=== PATIENT | female | born 1995 | race American Indian/Alaskan Native ===

== ENCOUNTER 2018-11-27 20:54 | Inpatient (IN) | payer MEDICAID ==
[2018-11-27] MEDS ORDERED: AMPICILLIN/NS 2 GM/100 ML 2 GM/100 ML BAG IV ONE (21:43)
[2018-11-27] MEDS ORDERED: MINERAL OIL PO PRN (21:43)
[2018-11-27] MEDS ORDERED: BRETHINE IVP PRN (21:43)
[2018-11-27] MEDS ORDERED: BRETHINE SUB-Q PRN (21:43)
[2018-11-27] MEDS ORDERED: STADOL IV PRN (21:43)
[2018-11-27] MEDS ORDERED: CERVIDIL VG ONE (21:43)
[2018-11-27] MEDS ORDERED: XYLOCAINE 2% INFILTRATI ONE (21:43)
[2018-11-27] MEDS ORDERED: PITOCin/NS 20 UNIT/1000ML DRIP 20 UNITS/1,000 ML BAG IV SCH (22:00)
[2018-11-27 22:17] LABS: Hematocrit 31.2 % (30.3-42.9); Hemoglobin 9.8 gm/dl (10.1-14.3); Mean Corpuscular HGB Conc 31 % (30-34); Platelet Count 212 K/mm3 (140-440); Red Blood Count 4.51 M/mm3 (3.65-5.03); Red Cell Distribution Width 19.8 % (13.2-15.2)
[2018-11-27] MEDS: LACTATED RINGERS 1,000 ML IV SCH (22:18)
[2018-11-27 22:38] LABS: Mean Corpuscular Volume 69 fl (79-97)
[2018-11-28] MEDS: LACTATED RINGERS 1,000 ML IV SCH ×2 (00:22→09:26)
--- NOTE | 2018-11-28 07:49 | History and Physical Report ---
History of Present Illness Date of examination: 11/28/18 Date of admission: 11/27/18 20:54 Chief complaint: IOL History of present illness: 22y/o @ 41+1 weeks admitted for induction of labor secondary to postterm and morbid obesity. The patient initiated care at 11 weeks' estimated gestational age. Her course has been complicated by STD exposure to Trichomonas and sickle cell trait. The patient is GBS negative. Past History Past Medical History: other (morbid obesity) Past Surgical History: no surgical history Social history: single - Obstetrical History Expected Date of Delivery: 11/19/18 Actual Gestation: 41 Week(s) 3 Day(s) : 1 Para: 0 Hx # Term Pregnancies: 0 Number of Pregnancies: 0 Spontaneous Abortions: 0 Induced : 0 Number of Living Children: 0 Medications and Allergies Allergies Allergy/AdvReac Type Severity Reaction Status Date / Time No Known Allergies Allergy Unverified 08/20/18 16:14 Home Medications Medication Instructions Recorded Confirmed Last Taken Type Formula Tablet 1 tab PO DAILY 11/27/18 11/27/18 11/27/18 History Active Meds: Active Medications Butorphanol Tartrate (Stadol) 2 mg IV Q2H PRN PRN Reason: Pain , Severe (7-10) Ephedrine Sulfate (Ephedrine Sulfate) 10 mg IV Q2M PRN PRN Reason: Hypotension Ampicillin Sodium (Ampicillin/Ns 1 Gm/50 Ml) 1 gm in 50 mls @ 100 mls/hr IV Q4HR JESUS; Protocol Lactated Ringer's (Lactated Ringers) 1,000 mls @ 125 mls/hr IV DIRECT JESUS Last Admin: 11/28/18 00:22 Dose: 125 mls/hr Documented by: Oxytocin/Sodium Chloride (Pitocin/Ns 20 Unit/1000ml Drip) 20 units in 1,000 mls @ 125 mls/hr IV DIRECT JESUS Mineral Oil (Mineral Oil) 30 ml PO QHS PRN PRN Reason: Constipation Terbutaline Sulfate (Brethine) 0.25 mg SUB-Q ONCE PRN PRN Reason: Hyperstimulation/Hypertonicity Terbutaline Sulfate (Brethine) 0.25 mg IVP ONCE PRN PRN Reason: Hyperstimulation/Hypertonicity Review of Systems All systems: negative - Vital Signs Vital signs: Vital Signs Temp Pulse Resp BP 98.8 F 118 H 18 134/78 11/27/18 21:17 11/27/18 21:17 11/27/18 21:17 11/27/18 21:17 Temp Pulse Resp BP Pulse Ox 98.8 F 98 H 18 120/61 96 11/27/18 21:17 11/28/18 07:34 11/27/18 21:17 11/28/18 07:34 11/27/18 21:43 - Physical Exam Breasts: Positive: deferred Cardiovascular: Regular rate Lungs: Positive: Clear to auscultation Results Result Diagrams: 11/27/18 22:00 Abnormal lab results 11/27/18 Range/Units 22:00 Hgb 9.8 L (10.1-14.3) gm/dl MCV 69 L (79-97) fl MCH 22 L (28-32) pg RDW 19.8 H (13.2-15.2) % All other labs normal. Assessment and Plan - Patient Problems (1) Post-term Current Visit: Yes Status: Acute Plan to address problem: Admit for induction of labor (2) Morbid obesity Current Visit: Yes Status: Acute
[2018-11-28] MEDS: AMPICILLIN/NS 1 GM/50 ML 1 GM/50 ML BAG IV SCH ×2 (14:18→18:30)
[2018-11-28] MEDS ORDERED: PITOCin/NS 30 UNIT/500ML 30,000 MILLIUNITS/500 ML BAG IV ONE (15:14)
[2018-11-28] MEDS ORDERED: fentaNYL-BUPIV 2 MCG/ML-0.125% 200 MCG/100 ML BAG EPIDURAL ONE (16:23)
[2018-11-28] MEDS ORDERED: XYLOCAINE 2%/ EPI 1:200,000 INFILTRATI ONE (16:45)
[2018-11-28] MEDS ORDERED: SUBLIMAZE ONE ×2 (16:45→22:12)
[2018-11-28] MEDS ORDERED: PITOCin/NS 30 UNIT/500ML 30 UNITS/500 ML BAG IV SCH (17:00)
[2018-11-28] MEDS ORDERED: NARCAN 2 MG/2 ML IV PRN (17:11)
--- NOTE | 2018-11-28 17:13 | Anesthesia Consultation ---
Anesthesia Consult and Med Hx Date of service: 11/28/18 - Pulmonary Exam CTA: Yes - Cardiac Exam Cardiac Exam: RRR - Pulmonary Hx Asthma: No - Cardiovascular System Hx Hypertension: No Hx Coronary Artery Disease: No - Central Nervous System Hx Seizures: No Hx Psychiatric Problems: No - Endocrine Hx Renal Disease: No Hx Hypothyroidism: No Hx Hyperthyroidism: No - Hematic Hx Anemia: No Hx Sickle Cell Disease: No - Other Systems Hx Alcohol Use: No Hx Obesity: Yes
[2018-11-28] MEDS ORDERED: fentaNYL-BUPIV 2 MCG/ML-0.125% 200 MCG/100 ML BAG EPIDURAL SCH (18:00)
[2018-11-28] MEDS ORDERED: XYLOCAINE 2% INFILTRATI ONE (22:11)
[2018-11-29] MEDS ORDERED: PHENERGAN PR PRN (02:05)
[2018-11-29] MEDS ORDERED: DULCOLAX PR PRN (02:05)
[2018-11-29] MEDS ORDERED: PHENERGAN PO PRN (02:05)
[2018-11-29] MEDS ORDERED: NORCO 5/325 PO PRN (02:05)
[2018-11-29] MEDS ORDERED: TUCKS PAD TP PRN (02:05)
[2018-11-29] MEDS ORDERED: TYLENOL PO PRN (02:05)
[2018-11-29] MEDS ORDERED: BENADRYL PO PRN (02:05)
[2018-11-29] MEDS ORDERED: LANSINOH TP PRN (02:05)
[2018-11-29] MEDS ORDERED: MILK OF MAGNESIA PO PRN (02:05)
[2018-11-29] MEDS ORDERED: ZOFRAN IV PRN (02:05)
--- NOTE | 2018-11-29 02:05 | Procedure Note ---
OB Delivery Note - Delivery Date of Delivery: 11/29/18 Surgeon: BRENDA MEEK Estimated blood loss: 200cc - Vaginal Delivery presentation: vertex Delivery position: OA Intrapartum events: none Delivery augmentation: pitocin Delivery monitor: external FHT Route of delivery: Delivery placenta: spontaneous Delivery cord: 3 umbilical vessels Episiotomy: none Delivery laceration: 1st degree Anesthesia: epidural Delivery comments: Patient progressed to complete dilatation. She had a spontaneous vaginal delivery of a liveborn female with Apgars of 8 and 9 weight 9 lbs. 10 oz. that was attended by the nursing staff. [place] was performed in order to facilitate delivery of the . Cord was clamped and cut 2 and the infant was bulb suction. The NICU staff was called to the delivery. The placenta delivered spontaneously intact with a three-vessel cord. The patient sustained a small first-degree laceration that was left unrepaired. Estimated blood loss of 200 mL. - A at 1 minute: 8 at 5 minutes: 9 Infant Gender: Female (weight 9 lbs. 10 oz.)
[2018-11-29] MEDS ORDERED: SODIUM CHLORIDE FLUSH SYRINGE 10 ML IV PRN (03:00)
[2018-11-29] MEDS: IBUPROFEN PO SCH ×3 (04:25→23:53)
[2018-11-29 15:06] LABS: Hematocrit 25.2 % (30.3-42.9)
--- NOTE | 2018-11-29 21:39 | Post Anesthesia Evaluation ---
- Post Anesthesia Evaluation Patient Participated: Yes Airway Patent: Yes Stable Respiratory Function: Yes Nausea/Vomiting: No Temp > 96.8F: Yes Pain Manageable: Yes Adequeate Hydration: Yes Anesthesia Complications: No Block Receding Appropriately: Yes Patient on Ventilator: No
[2018-11-30] MEDS: IBUPROFEN PO SCH (05:19)
[2018-11-30] MEDS ORDERED: BOOSTRIX IM ONE (06:00)
--- NOTE | 2018-11-30 08:35 | Progress Note ---
Assessment and Plan A/P PPD 1 s/p doing well VSS rh + hgb 9-8 on iron d/c home tomorrow Subjective - Subjective Date of service: 11/30/18 Principal diagnosis: s/p Patient reports: appetite normal, voiding normally, pain well controlled, flatus, ambulating normally [place]: doing well Objective - Vital Signs Latest vital signs: Vital Signs Temp Pulse Resp BP 11/30/18 01:24 98.5 F 98 H 18 124/60 11/29/18 15:10 98.1 F 95 H 20 105/46 Intake and Output 11/29/18 11/30/18 11/30/18 23:59 07:59 15:59 Intake Total 200 600 Balance 200 600 Intake: Oral 200 Intake, Free Water 600 Other: Total, Intake Amount 200 # Voids Void 1 2 - Exam Breasts: Present: normal Cardiovascular: Present: Regular rate, Normal S1 Lungs: Present: Clear to auscultation, Normal air movement Abdomen: Present: normal appearance, soft, normal bowel sounds. Absent: distention, tenderness, guarding Vulva: both: normal Uterus: Present: normal, firm. Absent: bogginess, tenderness Extremities: Present: normal Deep Tendon Reflex Grade: Normal +2 - Labs Labs: Abnormal lab results 11/29/18 Range/Units 14:56 Hgb 8.0 L (10.1-14.3) gm/dl Hct 25.2 L D (30.3-42.9) %
--- NOTE | 2018-11-30 12:54 | Discharge Summary ---
Providers - Providers Date of Admission: 11/27/18 20:54 Date of discharge: 12/01/18 Attending physician: BRENDA MEEK Primary care physician: BRENDA MEEK Hospitalization Reason for admission: induction of labor Delivery: Episiotomy: none Laceration: none Incision: normal complications: none Discharge diagnosis: IUP at term delivered [place] baby: female Hospital course: unremarkable hospital course Condition at discharge: Good Disposition: DC-01 TO HOME OR SELFCARE Plan - Discharge Medications Prescriptions: Ferrous Sulfate 325 mg PO BID #60 tablet. Ibuprofen [Motrin] 600 mg PO Q8H PRN #30 tablet PRN Reason: Pain oxyCODONE /ACETAMINOPHEN [Percocet 5/325] 1 tab PO Q6HR PRN #30 tablet PRN Reason: Pain - Provider Discharge Summary Activity: routine, no sex for 6 weeks, no strenuous exercise Diet: routine Instructions: routine Additional instructions: [] Smoking cessation referral if applicable(refer to patient education folder for contact #) [] Refer to [facility]'s [facility] Booklet Call your doctor immediately for: * Fever > 100.5 * Heavy vaginal bleeding ( >1 pad per hour) * Severe persistent headache * Shortness of breath * Reddened, hot, painful area to leg or breast * Drainage or odor from incision. * Keep incision clean and dry at all times and follow doctor's instructions regarding bathing/showering - Follow up plan Follow up: BRENDA MEEK MD [Primary Care Provider] - 12/27/18
[2018-11-30 19:23] VITALS: BP 136/64
== END 2018-11-30 20:06 | disposition home or self-care (01) | DRG 775 ==
LOC: LD 20:54 → OB 11-29 04:52
PROVIDERS: ADMIT Obstetrics & Gynecology; ATTEND Obstetrics & Gynecology
PROC: 10E0XZZ Delivery of Products of Conception, External Approach (ICD-10-PCS; principal; 2018-11-29)
PROC: 3E0R3BZ Introduction of Anesthetic Agent into Spinal Canal, Percutaneous Approach (ICD-10-PCS; 2018-11-29)
PROC: 00HU33Z Insertion of Infusion Device into Spinal Canal, Percutaneous Approach (ICD-10-PCS; 2018-11-29)
PROC: 3E0234Z Introduction of Serum, Toxoid and Vaccine into Muscle, Percutaneous Approach (ICD-10-PCS; 2018-11-30)
DX: O48.0 Post-term pregnancy (principal); Z3A.41 41 weeks gestation of pregnancy; Z37.0 Single live birth; E66.01 Morbid (severe) obesity due to excess calories; O99.214 Obesity complicating childbirth; Z71.3 Dietary counseling and surveillance; Z23 Encounter for immunization; O70.0 First degree perineal laceration during delivery
CPT/HCPCS: 36415; 85014; 85018; 85027; 86592; 86850; 86900; 86901; 90471; 90715; G0378; A6250; J0290; J0595; J2590; J3010; J7120